=== PATIENT | female | born 1970 | race Caucasian/White ===

== ENCOUNTER 2018-05-31 17:22 | Emergency (ER) | payer BC ==
[~2018-05-31] VITALS: Ht 162.6 cm; Wt 68.6 kg
[2018-05-31 17:26] VITALS: TEMP 98.7
[2018-05-31] MEDS ORDERED: LIPITOR 10MG10 MG PO (17:41)
[2018-05-31] MEDS ORDERED: ZANTAC 7575 MG PO (17:42)
[2018-05-31] MEDS ORDERED: CEPHALEXIN500 M1 PO (18:27)
[2018-05-31] MEDS ORDERED: NORCO 325 MG-51 TAB PO (18:28)
[2018-05-31 19:46] VITALS: BP 135/96; PULSE 76
== END 2018-05-31 19:46 | disposition home or self-care (01) ==
LOC: COL.ER 17:22
DX: S62.636B Displaced fracture of distal phalanx of right little finger, initial encounter for open fracture (principal); E78.5 Hyperlipidemia, unspecified; I10 Essential (primary) hypertension; Z23 Encounter for immunization; W26.8XXA Contact with other sharp object(s), not elsewhere classified, initial encounter; Y92.009 Unspecified place in unspecified non-institutional (private) residence as the place of occurrence of the external cause